=== PATIENT | male | born 1960 | race Caucasian/White ===

== ENCOUNTER → 2021-01-02 11:46 | Outpatient (BNVA) | payer MEDICARE, MEDICAID, SELFPAY | PROVIDERS: Family Provider Family Medicine; PCP Internal Medicine; Visit Provider Specialist | DX: F17.210 Nicotine dependence, cigarettes, uncomplicated; G62.89 Other specified polyneuropathies | CPT/HCPCS: 95908 ==

== ENCOUNTER 2023-07-17 22:00 | Inpatient (IN) | payer MEDICARE, MEDICAID, SELFPAY ==
[2023-07-17 22:01] VITALS: BP 149/82; PULSE 77; RESP 23; TEMP 36.9; O2SAT 94; BMI 20.3
--- NOTE | 2023-07-17 22:19 | XRR_ITS ---
PROCEDURE INFORMATION: Exam: XR Chest Exam date and time: 07/17/2023 10:40 PM Age: 63 years old Clinical indication: Shortness of breath; Additional info: SOB TECHNIQUE: Imaging protocol: Radiologic exam of the chest. Views: 1 view. COMPARISON: No relevant prior studies available. FINDINGS: Lungs: Emphysematous changes. Mild pulmonary vascular congestion. Pleural spaces: Unremarkable. No pleural effusion. No pneumothorax. Heart/Mediastinum: Unremarkable. No cardiomegaly. Bones/joints: Unremarkable. XR/XR chest 1V portable [id number] IMPRESSION: 1. Emphysematous changes. 2. Mild pulmonary vascular congestion.
--- NOTE | 2023-07-17 22:33 | ED_ITS ---
HPI - SOB/Dyspnea General: Chief Complaint: Shortness of Breath/Dyspnea Stated Complaint: SOB Time Seen by Provider: 07/17/23 22:01 Source: patient and EMS Mode of arrival: EMS Limitations: no limitations History of Present Illness: HPI Narrative: 63-year-old male who is here from residential with shortness of breath. He is been a longtime smoker. Minutes patient's had worsening shortness of breath over the last 2 days. He has had cough as well he does not wear oxygen at residential but is currently requiring 4 L. He denies any pain denies any vomiting or diarrhea. Associated symptoms: Deny abdominal pain, chest pain, fever(s), nausea or vomiting Review of Systems Const: Denies: fever(s) or chills Eyes: Denies: eye discomfort ENMT: Denies: throat pain or dental pain Card: Denies: chest pain Resp: Reports: dyspnea and productive cough GI: Denies: abdominal pain, nausea, vomiting or diarrhea : Denies: dysuria Musc: Denies: neck pain or back pain Skin/Breast: Denies: rash Neuro: Denies: headache(s) PFSH ED PFSH: Medical History Seizure Social History Smoking and tobacco/nicotine status: current every day tobacco/nicotine user Alcohol intake: former Substance/Drug Use: former Physical Exam Const: COMMON NORMALS: patient oriented x3 GENERAL APPEARANCE: ill appearing HENMT: COMMON NORMALS: normocephalic and atraumatic HEAD & SCALP: normocephalic and atraumatic Eye: COMMON NORMALS: Equal, round and reactive pupils present and EOMs intact bilaterally PUPIL: Yes Equal, round and reactive pupils present Neck/C-Spine: COMMON NORMALS: full ROM and supple Chest: COMMONS NORMALS: normal inspection of the chest and normal palpation of entire chest wall Resp: COMMON NORMALS: No retractions EFFORT & INSPECTION: Yes respiratory distress AUSCULTATION: rales Cardio: COMMON NORMALS: regular rate, regular rhythm and No murmurs present (Cardio) RATE: regular rate RHYTHM: regular rhythm GI: COMMON NORMALS: Normal to inspection, nondistended, normoactive bowel sounds present, Soft to palpation, non-tender and no masses PALPATION: Yes Soft to palpation Extremity: COMMON NORMALS: normal to inspection and full ROM Neuro: COMMON NORMALS: patient oriented x3, moves all extremities and no focal motor deficits Psych: COMMON NORMALS: mental status grossly normal, Normal thought process present and cooperative THOUGHT PROCESS: Normal thought process present Skin: COMMON NORMALS: no rashes or lesions noted and no wounds GENERAL SKIN EXAM: no rashes or lesions noted Course Vital Signs: Vital signs: Vital Signs Temperature 98.4 F 07/17/23 22:01 Pulse Rate 90 07/17/23 23:14 Respiratory Rate 20 H 07/17/23 23:14 Blood Pressure 149/82 07/17/23 22:01 Pulse Oximetry 95 07/17/23 23:14 Oxygen Delivery Me thod Nasal Cannula 07/17/23 23:14 Oxygen Flow Rate 3 07/17/23 23:14 MDM - SOB/Dyspnea Medical Decision Making Patient presents with residential with shortness of breath he is also on 3 L of oxygen which is a new requirement here he does appear to have CHF did give him Lasana spoke to the hospitalist will admit for observation at this time no signs of pneumonia COVID is negative. Medical Records I reviewed the patient's medical records. Lab Data I reviewed the patient's lab results. 07/17/23 22:41 07/17/23 22:41 Labs/Radiology: Radiology Impressions Chest X-Ray 07/17/23 22:19 IMPRESSION: 1. Emphysematous changes. 2. Mild pulmonary vascular congestion. Chest CTA 07/17/23 23:06 IMPRESSION: 1. Negative for pulmonary embolus. 2. Ascending thoracic aorta dilated to 3.5 cm. 3. Coronary artery atherosclerotic calcifications suspected. 4. Reflux of contrast into the intrahepatic veins suggestive of congestive heart failure. 5. Cardiomegaly. 6. Emphysematous changes. COMMENTS: In the absence of a history or active diagnosis of lung cancer, it is recommended that this patient with emphysema be evaluated for enrollment in a low dose CT lung cancer screening program. Laboratory Results WBC 14.70 10^3/uL (3.29-11.43) H 07/17/23 22:41 RBC 5.09 10^6/uL (3.85-5.65) 07/17/23 22:41 Hgb 15.30 g/dL (11.27-16.99) 07/17/23 22:41 Hct 45.8 % (37-53) 07/17/23 22:41 MCV 90.0 fl (82-101) 07/17/23 22:41 MCH 30.1 pg (27-33) 07/17/23 22:41 MCHC 33.4 g/dL (30-55) 07/17/23 22:41 RDW 13.1 % (12.1-15.1) 07/17/23 22:41 Plt Count 305 10^3/cmm (157-399) 07/17/23 22:41 MPV 9.1 fL (7.4-10.4) 07/17/23 22:41 Neut % (Auto) 78.1 % 07/17/23 22:41 Lymph % (Auto) 8.8 % 07/17/23 22:41 [place] % (Auto) 10.2 % 07/17/23 22:41 Eos % (Auto) 1.9 % 07/17/23 22:41 Baso % (Auto) 0.7 % 07/17/23 22:41 Neut # (Auto) 11.48 10^3/uL (1.8-7.7) H 07/17/23 22:41 Lymph # (Auto) 1.3 10^3/uL (0.8-4.8) 07/17/23 22:41 [place] # (Auto) 1.5 10^3/uL (0.2-0.9) H 07/17/23 22:41 Eos # (Auto) 0.3 10^3/uL (0.0-0.8) 07/17/23 22:41 Baso # (Auto) 0.1 10^3/uL (0.0-0.1) 07/17/23 22:41 Nucleated RBC % (auto) 0 % 07/17/23 22:41 Nucleated RBCs # 0.0 /100WBC 07/17/23 22:41 Sodium 132 mmol/L (136-145) L 07/17/23 22:41 Potassium 3.9 mmol/L (3.5-5.1) 07/17/23 22:41 Chloride 97 mmol/L (98-107) L 07/17/23 22:41 Carbon Dioxide 25 mmol/L (22-29) 07/17/23 22:41 Anion Gap 13.9 (5-19) 07/17/23 22:41 BUN 19 mg/dL (8-23) 07/17/23 22:41 Creatinine 0.6 mg/dL (0.7-1.2) L 07/17/23 22:41 GFR Calculation 135.2 mL/min (90-130) H 07/17/23 22:41 Glucose 111 mg/dL (65-115) 07/17/23 22:41 Calculated Osmolality 277 mOsm/kg (285-295) L 07/17/23 22:41 Calcium 10.7 mg/dL (8.5-10.5) H 07/17/23 22:41 Total Bilirubin 0.2 mg/dL (0.15-1.2) 07/17/23 22:41 AST 14 U/L (0-40) 07/17/23 22:41 ALT 15 U/L (0-41) 07/17/23 22:41 Alkaline Phosphatase 163 U/L (40-130) H 07/17/23 22:41 Troponin T Baseline 37 ng/L (0-15) H 07/17/23 22:41 Troponin T 120 Minute 34.77 ng/L (0-15) H 07/18/23 00:30 Delta Troponin T -2.23 ABS# (0-10) L 07/18/23 00:30 NT-Pro-B Natriuret Pep 4158 pg/mL (0-125) H 07/17/23 22:41 Total Protein 7.7 g/dL (6.6-8.7) 07/17/23 22:41 Albumin 3.8 g/dL (3.5-5.2) 07/17/23 22:41 Globulin 3.9 g/dL (1.3-4.6) 07/17/23 22:41 Influenza Type A Ag negative (Negative) 07/17/23 22:58 Influenza Type B Ag negative (Negative) 07/17/23 22:58 SARS-CoV-2 Ag (Rapid) negative (Negative) 07/17/23 22:58 All radiology interpretation(s) finalized by discharge Discharge Plan Discharge Patient Disposition: Placed in Observation Clinical Impression: Dyspnea, Hypoxia Condition: Stable Prescriptions: No Action atorvastatin [Lipitor] 40 mg tablet 40 mg PO DAILY levetiracetam [Keppra] 500 mg tablet 500 mg PO BID ferrous sulfate 325 mg (65 mg iron) tablet 325 mg PO BID quetiapine [Seroquel] 25 mg tablet 25 mg PO DAILY acetaminophen [Tylenol] 325 mg tablet 650 mg PO QID PRN Dakin's Solution 0.125 % solution 1 applic topical DAILY phenytoin sodium extended 100 mg capsule 100 mg PO TID 90 Days Qty: 270 2RF Rx Instructions: 100 mg PO three times daily; phenobarbital 32.4 mg tablet 32.4 mg PO TID Qty: 90 5RF Referrals: Germán Bucio DO [Primary Care Provider] - Coding Level of Care Code ED 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
[2023-07-17 22:45] LABS: Basophils # 0.1 10^3/uL (0.0-0.1); Basophils % 0.7 %; Eosinophils # 0.3 10^3/uL (0.0-0.8); Eosinophils % 1.9 %; Hematocrit 45.8 % (37-53); Lymphocytes # 1.3 10^3/uL (0.8-4.8); Lymphocytes % 8.8 %; Mean Corpuscular HGB Conc 33.4 g/dL (30-55); Mean Corpuscular Hemoglobin 30.1 pg (27-33); Mean Platelet Volume 9.1 fL (7.4-10.4); Monocytes # 1.5 10^3/uL (0.2-0.9); Monocytes % 10.2 %; Neutrophils # 11.48 10^3/uL (1.8-7.7); Neutrophils % 78.1 %; Nucleated Red Blood Cells % 0 %; Platelet Count 305 10^3/cmm (157-399); Red Blood Count 5.09 10^6/uL (3.85-5.65); Red Cell Distribution Width 13.1 % (12.1-15.1)
[2023-07-17 22:53] VITALS: PULSE 96; O2SAT 93
[2023-07-17] MEDS: methylPREDNISolone sod succ 125 MG in water for injection-sterile 2 ML 24 MG IVP (22:57)
--- NOTE | 2023-07-17 23:01 | ECG_ITS ---
[facility] Test Date: 2023-07-17 Pat Name: Arnoldo Hoover Department: Room: Gender: Male [employer]: : 1960 Requested By: Inga Conner Order Number: [id number] Leonard MD: Fredy Clemens M.D. Measurements Intervals [place]inger Rate: 86 P: 72 [place]: 144 QRS: 73 QRSD: 116 T: 27 QT: 356 QTc: 427 Interpretive Statements SINUS RHYTHM WITH OCCASIONAL VENTRICULAR PREMATURE COMPLEXES LATERAL MYOCARDIAL INFARCTION , PROBABLY OLD [40+ ms Q WAVE AND/OR ST/T ABNORMALITY IN I/aVL/V5/V6] Compared to ECG 06/30/2016 16:43:19 Atrial fibrillation no longer present Aberrant conduction of supraventricular beat(s) no longer present Myocardial infarct finding still present Electronically Signed On 07-18-2023 6:23:22 CDT by Fredy Clemens M.D. [id number]
--- NOTE | 2023-07-17 23:06 | CTR_ITS ---
PROCEDURE INFORMATION: Exam: CTA Chest With Contrast Exam date and time: 07/18/2023 12:50 AM Age: 63 years old Clinical indication: Dyspnea; Additional info: SOB TECHNIQUE: Imaging protocol: Computed tomographic angiography of the chest with contrast. Exam focused on the arteries. 3D rendering (Not supervised by radiologist): MIP and/or 3D reconstructed images were created by the technologist. Radiation optimization: All CT scans at this facility use at least one of these dose optimization techniques: automated exposure control; mA and/or kV adjustment per patient size (includes targeted exams where dose is matched to clinical indication); or iterative reconstruction. Contrast material: OMNI 350; Contrast volume: 80 ml; Contrast route: INTRAVENOUS (IV); REPORTING DATA: Count of CT and Cardiac NM exams in prior 12 months: This patient has received 0 known CTs and 0 known cardiac nuclear medicine studies in the 12 months prior to the current study. COMPARISON: CR (CHEST, ) 07/17/2023 10:40 PM RADIATION DOSE METRICS: Total DLP (mGy-cm): 258.48 FINDINGS: Pulmonary arteries: Normal. No pulmonary emboli. Aorta: Ascending thoracic aorta dilated to 3.5 cm. Veins: Reflux of contrast into the intrahepatic veins suggestive of congestive heart failure. Lungs: Emphysematous changes. Pleural spaces: Unremarkable. No pneumothorax. No pleural effusion. Heart: Cardiomegaly. Coronary arteries: Coronary artery atherosclerotic calcifications suspected. Lymph nodes: Unremarkable. No enlarged lymph nodes. Bones/joints: Unremarkable. No acute fracture. Soft tissues: Unremarkable. CT/CT angio chest PE protcl [id number] IMPRESSION: 1. Negative for pulmonary embolus. 2. Ascending thoracic aorta dilated to 3.5 cm. 3. Coronary artery atherosclerotic calcifications suspected. 4. Reflux of contrast into the intrahepatic veins suggestive of congestive heart failure. 5. Cardiomegaly. 6. Emphysematous changes. COMMENTS: In the absence of a history or active diagnosis of lung cancer, it is recommended that this patient with emphysema be evaluated for enrollment in a low dose CT lung cancer screening program.
[2023-07-17 23:11] VITALS: PULSE 93; RESP 20; O2SAT 95
[2023-07-17] MEDS: ipratropium-albuterol 3 mL Neb INHALATION (23:11)
[2023-07-17 23:14] VITALS: PULSE 90; RESP 20; O2SAT 95
[2023-07-17 23:17] LABS: Alanine Aminotransferase 15 U/L (0-41); Albumin Level 3.8 g/dL (3.5-5.2); Alkaline Phosphatase 163 U/L (40-130); Anion Gap 13.9 (5-19); Aspartate Amino Transferase 14 U/L (0-40); Blood Urea Nitrogen 19 mg/dL (8-23); Calcium 10.7 mg/dL (8.5-10.5); Carbon Dioxide 25 mmol/L (22-29); Chloride 97 mmol/L (98-107); Globulin 3.9 g/dL (1.3-4.6); Glomerular Filtration Rate 135.2 mL/min (90-130); Glucose 111 mg/dL (65-115); NT Pro B Type Natriuretic Pept 4158 pg/mL (0-125); Osmolality Calculated 277 mOsm/kg (285-295); Potassium 3.9 mmol/L (3.5-5.1); Sodium 132 mmol/L (136-145); Total Bilirubin 0.2 mg/dL (0.15-1.2); Total Protein 7.7 g/dL (6.6-8.7)
[2023-07-17 23:32] LABS: Troponin(5th) Baseline 37 ng/L (0-15)
[2023-07-17 23:36] LABS: Influenza A by IFA negative (Negative); Influenza B by IFA negative (Negative); SARS Covid-2 Antigen negative (Negative)
[2023-07-17] MEDS: FUROsemide 10 mg/mL SDV 4mL 40 MG IVP (23:59)
[2023-07-18] VITALS (26 sets, daily range): BP systolic 114–157; BP diastolic 78–122; PULSE 55–127; RESP 18–34; TEMP 36.4–36.7; O2SAT 85–98
[2023-07-18] MEDS: iohexol 350 mg/mL 500 mL Btl (per mL) IV (01:00)
[2023-07-18 01:01] LABS: Troponin 5 2HR 34.77 ng/L (0-15)
[2023-07-18 01:10] LABS: Troponin 5 2HR Delta -2.23 ABS# (0-10)
--- NOTE | 2023-07-18 04:48 | USCV_ITS ---
Kiko Arnoldo Age: 63 Gender: M : 1960 Exam Date: 07/18/2023 09:51 Ordering Phys: Megan Hu MD Technologist: Delvin Kay [place] [facility] [place]: eval EF, BP: 134 / 72 HR: 97 Rhythm: Sinus Technical Quality: Fair MEASUREMENTS (Male / Female) Normal Values 2D ECHO LV Ejection Fraction MOD 2C 51.9 % LV Ejection Fraction 2C AL 51.4 % DOPPLER AV Peak Velocity 127.0 cm/s LVOT Peak Velocity 91.0 cm/s MV Area PHT 14.7 cm squared Mitral E to A Ratio 1.9 MV E' Velocity 47.0 cm/s Mitral E to MV E' Ratio 13.9 Mitral E to LV E' Lateral Ratio 10.8 Mitral E to LV E' Septal Ratio 20.1 TR Peak Velocity 119.0 cm/s TR Peak Gradient 5.7 mmHg TV Peak E Velocity 93.0 cm/s FINDINGS Left Ventricle Technically limited quality echocardiogram because of poor ultrasonic windows. Grossly LV systolic function is moderately reduced. Regional wall motion abnormalities can not be accurately assessed because of poor ultrasonic windows. Right Ventricle Not well visualized Right Atrium Not well visualized Left Atrium Normal in size Mitral Valve Grossly normal Aortic Valve Not well visualized Tricuspid Valve Not well visualized Pulmonic Valve Not well visualized Pericardium Grossly nrmal Aorta Not well visualized IVC Not well visualized CONCLUSIONS Technically very limited quality echocardiogram because of poor ultrasonic windows. Grossly LV systolic function is moderately reduced. Regional wall motion abnormalities cannot be accurately assessed because of noted visualization. No comparison studies are available. Fredy Clemens MD (Electronically Signed) Final Date: 18 July 2023 12:20 S
--- NOTE | 2023-07-18 04:52 | P.HP_ITS ---
Providers/Chief Complaint Admitting Physician: Megan Hu MD Primary Care Provider: Germán Bucio DO Chief Complaint: SOB History of Present Illness Arnoldo Hoover is a 63 year old male who is a snf resident. He has a long-term history of epilepsy. He is sent into the emergency room today due to chief complaints of upper respiratory symptoms including runny nose, dry cough. Yesterday his oxygen was noted to drop down to 86% on room air. He was noted to have bilateral crackles on exam. He received albuterol treatment which did not appear to help, oxygen requirement was at 3 L/min which is new for him. He is not known to have chronic hypoxia. At the time of my assessment patient endorses feeling fatigued however denies any other specific complaints at this time. On review of symptoms asking specifically about chest pain. He states he has had midsternal chest discomfort for about 2 days now. He smokes half a pack of cigarettes a day, long-term smoker over 30 years. Denies any fever or chills recently. Denies any cough, however noted to be coughing intermittently during the interview.Denies any past history of CAD or CHF. Review of Systems General: Reports: 10 or more systems reviewed and unremarkable except in HPI and below Const: Denies: fever(s), chills or body aches Eyes: Denies: change in vision, blurry vision or photophobia ENMT: Reports: hoarseness; Denies: throat pain, enlarged tonsils, odynophagia or nasal congestion Card: Denies: chest pain, palpitations, irregular heart rhythm, edema, swelling of feet/ankles, lightheadedness, pre-syncope, dyspnea on exertion or orthopnea Resp: Denies: dyspnea, productive cough, non-productive cough, wheezing, stridor, pain on inspiration, change in phlegm color, hemoptysis or chest congestion GI: Denies: abdominal pain, nausea, vomiting, hematemesis, coffee ground emesis, dysphagia, heartburn, diarrhea, constipation, GI cramping, change in stool character, hematochezia or melena : Denies: flank pain, dysuria, urinary frequency, urinary urgency, urinary hesitancy or hematuria Musc: Denies: neck pain, back pain, extremity pain, joint swelling, joint warm th or deformity Neuro: Denies: headache(s), numbness in extremities, weakness in extremities, sensory changes, difficulty walking, frequent falls, dizziness, vertigo, beh avioral changes, Slurred speech present or seizure-like activity Psych: Denies: anxiety, depression, suicidal ideation or homicidal ideation Endo: Denies: polyuria, polydipsia, tired all the time, cold intolerance or hot flashes Kam/Lymph: Denies: easy bruising or easy bleeding Medications/Allergies Home Medications Medication Instructions Recorded Confirmed Last Taken Type phenytoin sodium extended 100 mg 100 mg PO TID seizure disorder 90 09/07/20 01/02/21 Unknown Rx capsule days #270 caps phenobarbital 32.4 mg tablet 32.4 mg PO TID seizure activity 09/26/20 01/02/21 Unknown Rx #90 tabs acetaminophen 325 mg tablet 650 mg PO QID PRN 01/02/21 01/02/21 Unknown History (Tylenol) atorvastatin 40 mg tablet (Lipitor) 40 mg PO DAILY 01/02/21 01/02/21 Unknown History ferrous sulfate 325 mg (65 mg 325 mg PO BID 01/02/21 01/02/21 Unknown History iron) tablet levetiracetam 500 mg tablet 500 mg PO BID 01/02/21 01/02/21 Unknown History (Keppra) quetiapine 25 mg tablet (Seroquel) 25 mg PO DAILY 01/02/21 01/02/21 Unknown History sodium hypochlorite 0.125 % 1 applic topical DAILY 01/02/21 01/02/21 Unknown History solution (Dakin's Solution) Allergies Allergy/AdvReac Type Severity Reaction Status Date / Time No Known Allergies Allergy Verified 01/02/21 12:01 PFSH Acute PFSH: Medical History Seizure Social History Smoking and tobacco/nicotine status: current every day tobacco/nicotine user Alcohol intake: former Substance/Drug Use: former Vitals/I&O/Wt Last Vital Signs Temp 98.4 F 07/17/23 22:01 Pulse 78 07/18/23 01:46 Resp 22 H 07/18/23 01:46 BP 114/78 07/18/23 01:46 Pulse Ox 92 07/18/23 01:46 O2 Del Method Nasal Cannula 07/18/23 02:19 O2 Flow Rate 3 07/17/23 23:14 07/17/23 07/17/23 07/18/23 14:59 22:59 06:59 Intake Total 2 / 2 Balance 2 / 2 Weight last 48 hrs Weight 57.153 kg Physical Exam Narrative: General: No acute distress, AO x3 HEENT: PERRLA, pupils bilaterally equal and reactive, pallors not present Chest: Bilateral wheezing on exam CVS: S1-S2 regular, no murmurs, no tachycardia, no gallops, no rubs Abdomen: Soft, nontender, no organomegaly, bowel sounds present Neuro: No focal deficits, no facial deformity, AO x3, power 5/5 in all limbs Extremities: Mild bilateral lower extremity pitting edema Data 07/17/23 22:41 07/17/23 22:41 Other Labs: CT/CT angio chest PE protcl [id number] IMPRESSION: 1. ? Negative for pulmonary embolus. 2. ? Ascending thoracic aorta dilated to 3.5 cm. 3. ? Coronary artery atherosclerotic calcifications suspected. 4. ? Reflux of contrast into the intrahepatic veins suggestive of congestive heart failure. 5. ? Cardiomegaly. 6. ? Emphysematous changes. A&P Assessment and plan (1) Dyspnea: (2) Hypoxia: (3) COPD exacerbation: (4) Thoracic aortic aneurysm: (5) CHF (congestive heart failure): Plan 63-year-old male, chronic smoker, history of seizure disorder, sn[facility] resident, presented to the emergency room today with chief complaints of hypoxia, oxygen saturation 86% on room air, new oxygen requirement of 2 to 3 L/min. Differentials at this time include COPD exacerbation versus CHF exacerbation On exam patient is noted to have wheezing bilaterally in all lung lala. Emphysematous changes noted on chest x-ray. Denies any past history of COPD or inhaler use, however given history of smoking and chronic changes suspect he may have underlying COPD with exacerbation currently. Negative rapid COVID and flu antigens. Started on scheduled nebulization with DuoNeb and budesonide for COPD exacerbation Dexamethasone 6 mg IV daily for the same. CTA negative for PE today. No focal consolidation noted. Lower extremity pitting edema, elevated BNP, congestive hepatic changes noted on CT today with suspicion additionally for CHF. Patient endorses intermittent chest pain for the past 2 days, however unable to specify any details. EKG without any acute ST-T wave changes, troponin series 37--> 34--> 26 with serially negative delta's make ACS less likely at this time. May have underlying pulmonary hypertension or CHF. Echocardiogram to evaluate for the same. Received 40 mg of IV Lasix in the emergency room, We will continue diuresis with Lasix 40 mg p.o. daily with close monitoring of urine output and renal function. Attestations Medical Necessity Statement*: Anticipate less than 2 midnight admission at this point in time. Coding Level of Care Code Acute Code for [facility] Fwd Diagnoses Dyspnea R06.00 Hypoxia R09.02 COPD exacerbation J44.1 Thoracic aortic aneurysm I71.20 CHF (congestive heart failure) I50.9
[2023-07-18 05:27] LABS: Troponin 5 6HR 26.12 ng/L (0-15)
[2023-07-18 05:32] LABS: Procalcitonin 0.06 ng/mL (0-0.5)
[2023-07-18] MEDS: enoxaparin 40 mg/0.4 mL Syringe SUBCUT (05:57)
[2023-07-18] MEDS: dexamethasone 4 mg/mL INJ 6 MG IVP (09:07)
[2023-07-18] MEDS: FUROsemide 20 mg Tablet PO (09:07)
[2023-07-18] MEDS: pantoprazole DR 40 mg Tablet PO (09:10)
--- NOTE | 2023-07-18 09:15 | PC.RESP ---
pt given meds 0900, pulmicort, and duoneb
[2023-07-18] MEDS: budesonide 0.5 mg/2 mL Neb INHALATION ×2 (09:24→19:58)
[2023-07-18] MEDS: ipratropium-albuterol 3 mL Neb INHALATION ×3 (09:24→19:58)
[2023-07-18] MEDS: methylPREDNISolone sod succ 60 MG in water for injection-sterile 0.96 ML 11.52 MG IVP ×2 (09:39→17:27)
--- NOTE | 2023-07-18 09:50 | PM.MISC ---
Miscellaneous Note Note: Patient is wheezing Tripoding Transfer to ICU Start BiPAP Patient is full code Patient stating that he does not have any family or friends He wants to stay full code Goals of care discussed today Tripoding with crackles Active wheezing Currently on 2 to 3 L nasal cannula Abdomen soft Lower extremity trace edema GCS 15 Awake and alert Start IV Lasix Start IV steroids Transfer to ICU Start BiPAP We will give magnesium Patient refused ABG No signs of PE We will give him azithromycin and ceftriaxone for COPD exacerbation
--- NOTE | 2023-07-18 10:16 | PC.NURSE ---
Report called to VAL Pool. Pt leaving floor to ICU - Bed 3.
[2023-07-18] MEDS: cefTRIAXone 1,000 MG in sodium chloride 0.9% (plus) 50 ML 100 MG IV (12:04)
[2023-07-18] MEDS: FUROsemide 10 mg/mL SDV 4mL 40 MG IVP (12:04)
[2023-07-18] MEDS: magnesium sulfate premix 1 GM/100 ML PIGGYBACK IV (12:05)
--- NOTE | 2023-07-18 18:42 | PC.NURSE ---
Pt was brought to ICU via wheelchair on 3L NC. Once patient was placed in a room telemetry was placed but patient continues to remove patches. Patient also gets out of bed without pushing call light to use urinal. Continued education on pushing call light and wearing telemetry patches.
[2023-07-18] MEDS: gabapentin 300 mg Capsule PO (20:44)
--- NOTE | 2023-07-18 22:12 | PC.NURSE ---
Patient requested his epilepsy medication. Dr. Vidales was contacted and orders were given to resume Kepp[facility]in [facility].
[2023-07-18] MEDS: phenytoin ER 100 mg Capsule PO (22:37)
[2023-07-18] MEDS: levETIRAcetam 500 mg Tablet PO (22:37)
[2023-07-19] VITALS (31 sets, daily range): BP systolic 85–167; BP diastolic 53–126; PULSE 68–105; RESP 12–32; TEMP 36.9; O2SAT 85–94
[2023-07-19] MEDS: methylPREDNISolone sod succ 60 MG in water for injection-sterile 0.96 ML 11.52 MG IVP ×3 (00:32→17:00)
[2023-07-19] MEDS: ipratropium-albuterol 3 mL Neb INHALATION ×4 (03:18→19:48)
[2023-07-19 04:35] LABS: Basophils % 0.3 %; Hematocrit 47.3 % (37-53); Lymphocytes # 0.7 10^3/uL (0.8-4.8); Lymphocytes % 6.2 %; Mean Corpuscular HGB Conc 32.1 g/dL (30-55); Mean Corpuscular Hemoglobin 30.3 pg (27-33); Mean Corpuscular Volume 94.2 fl (82-101); Mean Platelet Volume 10.2 fL (7.4-10.4); Monocytes # 0.7 10^3/uL (0.2-0.9); Monocytes % 5.7 %; Neutrophils # 10.35 10^3/uL (1.8-7.7); Nucleated Red Blood Cells % 0 %; Platelet Count 270 10^3/cmm (157-399); Red Blood Count 5.02 10^6/uL (3.85-5.65); Red Cell Distribution Width 13.2 % (12.1-15.1); White Blood Count 11.89 10^3/uL (3.29-11.43)
[2023-07-19] MEDS: enoxaparin 40 mg/0.4 mL Syringe SUBCUT (04:46)
[2023-07-19 05:02] LABS: Alanine Aminotransferase 16 U/L (0-41); Albumin Level 4.1 g/dL (3.5-5.2); Alkaline Phosphatase 166 U/L (40-130); Anion Gap 20.1 (5-19); Aspartate Amino Transferase 12 U/L (0-40); Blood Urea Nitrogen 32 mg/dL (8-23); Calcium 11.2 mg/dL (8.5-10.5); Carbon Dioxide 24 mmol/L (22-29); Chloride 99 mmol/L (98-107); Globulin 3.4 g/dL (1.3-4.6); Glucose 122 mg/dL (65-115); Magnesium 2.7 mg/dL (1.7-2.3); Osmolality Calculated 296 mOsm/kg (285-295); Potassium 4.1 mmol/L (3.5-5.1); Sodium 139 mmol/L (136-145); Total Bilirubin 0.2 mg/dL (0.15-1.2); Total Protein 7.5 g/dL (6.6-8.7)
[2023-07-19] MEDS: budesonide 0.5 mg/2 mL Neb INHALATION ×2 (07:37→19:49)
--- NOTE | 2023-07-19 08:02 | PC.SOCIAL ---
IMM Update pg 2 of IMM not updated @ this time as patient is currently in observation status.
[2023-07-19] MEDS: azithromycin 250 mg Tablet 500 MG PO (08:26)
[2023-07-19] MEDS: pantoprazole DR 40 mg Tablet PO (08:27)
[2023-07-19] MEDS: phenytoin ER 100 mg Capsule PO ×3 (08:27→20:31)
[2023-07-19] MEDS: levETIRAcetam 500 mg Tablet PO ×2 (08:27→17:01)
[2023-07-19] MEDS: gabapentin 300 mg Capsule PO ×3 (08:28→20:31)
[2023-07-19] MEDS: cefTRIAXone 1,000 MG in sodium chloride 0.9% (plus) 50 ML 100 MG IV (08:31)
--- NOTE | 2023-07-19 10:04 | PM.PN ---
Subjective Subjective: Patient is stating that he felt slightly better however still wheezing crackles positive He did use BiPAP for a while overnight Currently on nasal cannula Hypertensive and tachycardic Vitals/I&O/Wt Last Vital Signs Temp 97.6 F 07/18/23 20:30 Pulse 105 H 07/19/23 09:00 Resp 18 07/19/23 09:00 BP 148/110 07/19/23 09:00 Pulse Ox 90 07/19/23 09:00 O2 Del Method BiPAP 07/19/23 07:45 O2 Flow Rate 3 07/18/23 13:27 FiO2 30 07/19/23 07:45 07/18/23 07/19/23 07/19/23 22:59 06:59 14:59 Intake Total 600.96 / 651.92 0.96 / 652.88 Output Total 950 / 950 200 / 200 Balance -349.04 / -298.08 0.96 / -297.12 -200 / -200 Weight last 48 hrs Weight 57.153 kg Physical Exam Narrative: Signs of fluid overload present Crackles and wheezing positive Currently on nasal cannula Abdomen soft S1, S2 tachycardia Left eye cataract Nonfocal neuro exam GCS 15 Data 07/19/23 03:47 07/19/23 03:47 A&P Assessment and plan (1) CHF (congestive heart failure): (2) Thoracic aortic aneurysm: (3) COPD exacerbation: (4) Dyspnea: (5) Hypoxia: (6) Seizure: (7) Cataract: (8) Mononeuritis multiplex: Plan Acute/new onset CHF Gross reduced EF as per the recent echo Most likely will need stress test on Saturday Continue IV Lasix Hypertensive: Adjust antihypertensive regimen And added amlodipine would use lisinopril as well COPD exacerbation Active wheezing with crackles Continue high-dose steroids Patient did use BiPAP for a while overnight Currently on nasal cannula CTA rule out PE Seizure without breakthrough episodes Continue phenytoin We will follow-up with phenytoin level Patient is stating that he wants to stay full code Cardiac diet DVT prophylaxis on board Attestations Medical Necessity Statement*: Anticipating stay until Saturday Diagnoses CHF (congestive heart failure) I50.9 Thoracic aortic aneurysm I71.20 COPD exacerbation J44.1 Dyspnea R06.00 Hypoxia R09.02 Seizure R56.9 Cataract H26.9 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
[2023-07-19] MEDS: amlodipine 10 mg Tablet PO (10:34)
[2023-07-19] MEDS: FUROsemide 10 mg/mL SDV 4mL 40 MG IVP (10:34)
[2023-07-19] MEDS: lisinopril 10 mg Tablet PO (10:34)
[2023-07-19 19:32] LABS: Glucose Point of Care 181 mg/dL (70-110)
[2023-07-20] VITALS (21 sets, daily range): BP systolic 90–140; BP diastolic 54–86; PULSE 63–94; RESP 16–26; TEMP 36.6; O2SAT 88–98
[2023-07-20] MEDS: methylPREDNISolone sod succ 60 MG in water for injection-sterile 0.96 ML 11.52 MG IVP ×2 (00:34→09:09)
[2023-07-20] MEDS: ipratropium-albuterol 3 mL Neb INHALATION ×4 (02:46→20:13)
[2023-07-20] MEDS: enoxaparin 40 mg/0.4 mL Syringe SUBCUT (04:08)
[2023-07-20 04:48] LABS: Basophils % 0.2 %; Hematocrit 44.6 % (37-53); Lymphocytes # 0.8 10^3/uL (0.8-4.8); Lymphocytes % 6.2 %; Mean Corpuscular HGB Conc 33.4 g/dL (30-55); Mean Corpuscular Volume 89.9 fl (82-101); Mean Platelet Volume 9.6 fL (7.4-10.4); Monocytes # 0.6 10^3/uL (0.2-0.9); Monocytes % 5.1 %; Neutrophils # 11.01 10^3/uL (1.8-7.7); Neutrophils % 87.9 %; Nucleated Red Blood Cells % 0 %; Platelet Count 345 10^3/cmm (157-399); Red Blood Count 4.96 10^6/uL (3.85-5.65); Red Cell Distribution Width 13.2 % (12.1-15.1); White Blood Count 12.52 10^3/uL (3.29-11.43)
[2023-07-20 05:12] LABS: Anion Gap 14.3 (5-19); Blood Urea Nitrogen 55 mg/dL (8-23); Calcium 10.4 mg/dL (8.5-10.5); Carbon Dioxide 28 mmol/L (22-29); Chloride 99 mmol/L (98-107); Creatinine Clr Calc Pharmacy 70.7653; Glomerular Filtration Rate 84.7 mL/min (90-130); Glucose 126 mg/dL (65-115); Magnesium 2.4 mg/dL (1.7-2.3); Osmolality Calculated 301 mOsm/kg (285-295); Potassium 4.3 mmol/L (3.5-5.1); Sodium 137 mmol/L (136-145)
[2023-07-20] MEDS: budesonide 0.5 mg/2 mL Neb INHALATION ×2 (08:06→20:16)
[2023-07-20] MEDS: cefTRIAXone 1,000 MG in sodium chloride 0.9% (plus) 50 ML 100 MG IV (09:08)
[2023-07-20] MEDS: azithromycin 250 mg Tablet 500 MG PO (09:08)
[2023-07-20] MEDS: phenytoin ER 100 mg Capsule PO ×3 (09:09→20:49)
[2023-07-20] MEDS: lisinopril 10 mg Tablet PO (09:09)
[2023-07-20] MEDS: gabapentin 300 mg Capsule PO ×3 (09:09→20:49)
[2023-07-20] MEDS: amlodipine 10 mg Tablet PO (09:09)
[2023-07-20] MEDS: levETIRAcetam 500 mg Tablet PO ×2 (09:09→17:43)
[2023-07-20] MEDS: pantoprazole DR 40 mg Tablet PO (09:09)
--- NOTE | 2023-07-20 11:52 | PM.PN ---
Subjective Subjective: Patient is on 6 L Did not use BiPAP Productive cough slightly better Wheezing improved Can be transferred out of ICU to [facility] Vitals/I&O/Wt Last Vital Signs Temp 98.5 F 07/19/23 19:00 Pulse 71 07/20/23 08:00 Resp 23 H 07/20/23 08:00 BP 117/77 07/20/23 08:00 Pulse Ox 94 07/20/23 08:00 O2 Del Method Nasal Cannula 07/20/23 08:00 O2 Flow Rate 6 07/20/23 08:00 FiO2 30 07/19/23 07:45 07/19/23 07/20/23 07/20/23 22:59 06:59 14:59 Intake Total 1160.96 / 1211.92 240.96 / 1452.88 120 / 120 Output Total 600 / 800 500 / 1300 200 / 200 Balance 560.96 / 411.92 -259.04 / 152.88 -80 / -80 Physical Exam Narrative: Wheezing or crackles slightly improved Currently on 6 L Saturating 91% S1, S2 Hemodynamic stable Malnourished Abdomen soft Extremity no edema Data 07/20/23 04:06 07/20/23 04:06 A&P Assessment and plan (1) CHF (congestive heart failure): (2) Thoracic aortic aneurysm: (3) COPD exacerbation: (4) Dyspnea: (5) Hypoxia: (6) Mononeuritis multiplex: (7) Seizure: (8) Cataract: Plan Acute systolic CHF exacerbation Improving gradually Monitor electrolyte imbalance Acute COPD exacerbation Active smoker Wheezing and crackles improving Can be transferred to [facility] Continue same dose of steroids today might taper off by tomorrow Patient was given magnesium as well Magnesium 2.4 Disposition plan: Back to facility likely on Saturday after home O2 evaluation Full code Cardiac consistent carb diet No signs of PE Attestations Medical Necessity Statement*: Continue medical management Diagnoses CHF (congestive heart failure) I50.9 Thoracic aortic aneurysm I71.20 COPD exacerbation J44.1 Dyspnea R06.00 Hypoxia R09.02 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 Seizure R56.9 Cataract H26.9
[2023-07-20] MEDS: FUROsemide 10 mg/mL SDV 4mL 40 MG IVP (13:02)
--- NOTE | 2023-07-20 18:12 | PC.NURSE ---
Patients IV was leaking and unable to flush to right AC IV was removed. This nurse attempted twice to place new IV and when second nurse attempted patient began yelling at staff and refused any more IV attempts. Dr. Rivas was notified.
[2023-07-21] VITALS (23 sets, daily range): BP systolic 104–157; BP diastolic 64–103; PULSE 64–104; RESP 13–27; TEMP 35.8–36.4; O2SAT 85–98
[2023-07-21] MEDS: methylPREDNISolone sod succ 60 MG in water for injection-sterile 0.96 ML 11.52 MG IVP ×2 (00:31→08:58)
[2023-07-21] MEDS: ipratropium-albuterol 3 mL Neb INHALATION ×4 (01:21→20:54)
[2023-07-21] MEDS: enoxaparin 40 mg/0.4 mL Syringe SUBCUT (04:00)
[2023-07-21 05:19] LABS: Chloride 98 mmol/L (98-107); Glucose 115 mg/dL (65-115); Sodium 135 mmol/L (136-145)
[2023-07-21 06:07] LABS: Potassium 4.6 mmol/L (3.5-5.1)
[2023-07-21 06:37] LABS: Anion Gap 15.6 (5-19); Blood Urea Nitrogen 38 mg/dL (8-23); Calcium 10.2 mg/dL (8.5-10.5); Carbon Dioxide 26 mmol/L (22-29); Glomerular Filtration Rate 166.9 mL/min (90-130); Osmolality Calculated 290 mOsm/kg (285-295)
[2023-07-21] MEDS: budesonide 0.5 mg/2 mL Neb INHALATION ×2 (07:29→20:54)
[2023-07-21] MEDS: cefTRIAXone 1,000 MG in sodium chloride 0.9% (plus) 50 ML 100 MG IV (08:57)
[2023-07-21] MEDS: azithromycin 250 mg Tablet 500 MG PO (08:58)
[2023-07-21] MEDS: levETIRAcetam 500 mg Tablet PO ×2 (08:58→17:17)
[2023-07-21] MEDS: pantoprazole DR 40 mg Tablet PO (08:58)
[2023-07-21] MEDS: gabapentin 300 mg Capsule PO ×3 (08:58→20:52)
[2023-07-21] MEDS: amlodipine 10 mg Tablet PO (08:58)
[2023-07-21] MEDS: phenytoin ER 100 mg Capsule PO ×3 (08:58→20:51)
[2023-07-21] MEDS: lisinopril 10 mg Tablet PO (08:59)
[2023-07-21] MEDS: FUROsemide 10 mg/mL SDV 4mL 40 MG IVP (10:23)
--- NOTE | 2023-07-21 11:58 | ECG_ITS ---
[facility] Test Date: 2023-07-22 Pat Name: Arnoldo Hoover Department: Room: 252 Gender: Male Waste Hand: Lisandra Rodneyfus : 1960 Requested By: Berna Rivas Order Number: [id number] Leonard MD: Kelvin Diaz M.D. Interpretive Statements NAME OF STUDY: LEXISCAN SESTAMIBI STRESS TEST INDICATION: Unstable Angina , PROCEDURE: At the baseline, the EKG revealed normal sinus rhythm with frequent PVCs. Features of old inferolateral wall myocardial infarction. Nonspecific IVCD. The baseline 88 bpm with a blood pressue of 123/87 mm of Hg Lexiscan was infused over a period of 20 seconds. A total of 0.4 milligrams of Lexiscan was infused. The stress phase was continued for a total of 5 minutes. Heart rate at the end of the stress phase was 92 bpm with a blood pressure 79/61 mm of Hg. The EKG at the peak infusion revealed almost complete disappearance of the PVCs. Sestamibi was injected 20 seconds after the Lexiscan infusion. Heart rate at the end of the recovery phase was 91 bpm with a blood pressure of 90/58 mm of Hg. the EKG showed return of the baseline PVCs CONCLUSION: 1. No significant EKG changes with the LexiScan infusion 2. No LexiScan induced chest pain or cardiac arrhythmia 3. Normal blood pressure and heart rate response 4. Sestamibi/sestamibi perfusion scan pending; see separate report. Electronically Signed On 07-27-2023 13:57:13 POWER PRESS OPERATOR by Kelvin Diaz M.D. [id number]
--- NOTE | 2023-07-21 11:58 | PM.PN ---
Subjective Subjective: This morning patient is on 4 L Endorsing feeling better Productive cough has improved Will require stress test for tomorrow Vitals/I&O/Wt Last Vital Signs Temp 96.5 F L 07/21/23 00:00 Pulse 97 07/21/23 09:00 Resp 26 H 07/21/23 09:00 BP 127/80 07/21/23 09:00 Pulse Ox 98 07/21/23 08:00 O2 Del Method Nasal Cannula 07/21/23 07:29 O2 Flow Rate 4 07/21/23 07:29 FiO2 30 07/19/23 07:45 07/20/23 07/21/23 07/21/23 23:59 06:59 14:59 Intake Total 290.96 / 290.96 Output Total Balance 290.96 / 290.96 Physical Exam Narrative: Wheezing or crackles improved Currently on 4 L Multiple PVCs on telemetry Afebrile Hemodynamic stable Pleasant and cooperative Signs of fluid load improving Pleasant and cooperative Nonfocal neuro exam Left eye cataract Data 07/20/23 04:06 07/21/23 03:42 A&P Assessment and plan (1) CHF (congestive heart failure): (2) Thoracic aortic aneurysm: (3) COPD exacerbation: (4) Dyspnea: (5) Hypoxia: (6) Mononeuritis multiplex: (7) Seizure: (8) Cataract: Plan 63-year male came from [place] for acute hypoxia, active smoker has been diagnosed with new onset CHF and COPD exacerbation, he was transferred to ICU because of his tripoding and active respiratory distress improved with IV steroids and use of antibiotics, no signs of PE, currently requiring 4 to 5 L of oxygen Reduced ejection fraction heart failure exacerbation We will request chest test tomorrow Acute hypoxia related to COPD and CHF exacerbation Currently on 4 L Patient does not take any inhalers Will need steroids and COPD inhalers at the time of discharge Acute COPD exacerbation Improved with IV steroids and antibiotics Active smoker History of seizures Continue phenytoin Patient will be able to go back to the facility on Saturday if stress test is negative Attestations Medical Necessity Statement*: Continue medical management transfer out of ICU Diagnoses CHF (congestive heart failure) I50.9 Thoracic aortic aneurysm I71.20 COPD exacerbation J44.1 Dyspnea R06.00 Hypoxia R09.02 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 Seizure R56.9 Cataract H26.9
[2023-07-22] VITALS (12 sets, daily range): BP systolic 90–116; BP diastolic 58–73; PULSE 66–92; RESP 15–18; TEMP 36.3–36.8; O2SAT 87–96
[2023-07-22] MEDS: ipratropium-albuterol 3 mL Neb INHALATION ×4 (02:14→20:48)
[2023-07-22 03:25] LABS: Basophils % 0.4 %; Eosinophils # 0.2 10^3/uL (0.0-0.8); Eosinophils % 1.7 %; Lymphocytes # 2.9 10^3/uL (0.8-4.8); Lymphocytes % 31.3 %; Mean Corpuscular HGB Conc 33.3 g/dL (30-55); Mean Corpuscular Hemoglobin 30.2 pg (27-33); Mean Corpuscular Volume 90.7 fl (82-101); Mean Platelet Volume 9.1 fL (7.4-10.4); Monocytes # 1.1 10^3/uL (0.2-0.9); Neutrophils # 4.95 10^3/uL (1.8-7.7); Neutrophils % 53.2 %; Nucleated Red Blood Cells % 0 %; Platelet Count 312 10^3/cmm (157-399); Red Blood Count 4.96 10^6/uL (3.85-5.65); Red Cell Distribution Width 13.2 % (12.1-15.1); White Blood Count 9.32 10^3/uL (3.29-11.43)
[2023-07-22 03:55] LABS: Blood Urea Nitrogen 32 mg/dL (8-23); Calcium 9.9 mg/dL (8.5-10.5); Carbon Dioxide 30 mmol/L (22-29); Chloride 98 mmol/L (98-107); Glomerular Filtration Rate 135.2 mL/min (90-130); Glucose 78 mg/dL (65-115); Osmolality Calculated 288 mOsm/kg (285-295); Sodium 136 mmol/L (136-145)
[2023-07-22] MEDS: enoxaparin 40 mg/0.4 mL Syringe SUBCUT (05:43)
--- NOTE | 2023-07-22 06:17 | PM.DCS ---
Discharge Providers Date of Admission: 07/20/23 08:54 Date of Discharge: July 22, 2023 Attending Provider at Admission: Megan Hu MD Attending Provider at Discharge: Kalee Thompson MD Primary Care Provider: Germán Bucio DO Diagnoses at Discharge Discharge Diagnosis (1) CHF (congestive heart failure): Status: Acute (2) Thoracic aortic aneurysm: Status: Acute (3) COPD exacerbation: Status: Acute (4) Dyspnea: Status: Acute (5) Hypoxia: Status: Acute (6) Mononeuritis multiplex: Status: Acute (7) Seizure: Status: Acute (8) Cataract: Status: Acute Reason for Visit Reason for Visit: SOB Hospital Course Hospital Course 63-year-old male who lives in a facility, does not have any family, presented to hospital for worsening of shortness of breath, patient was diagnosed with new onset CHF, echo showed mildly reduced EF, patient symptoms improved with use of IV diuretics, please note he is wheezing was severe on admission required IV steroids for about 72 hours, oxygen requirement was new, was requiring 4 to 5 L, patient is an active smoker, stress test was requested, PE was ruled out CT chest was done at the time of admission, patient will need optimization of his inhalers for emphysematous/COPD. We will add Spiriva and Advair, lisinopril for hypertension, Medrol pack and doxycycline for 3 days. Patient is stating that in case of any emergency he would like to stay full code, he does not have any medical DPOA, he stating that he has no friends or family in [place]. Physical Exam Narrative: Malnourished Requiring 4 L GCS 15 Awake and alert Wheezing or crackles improved Pleasant Left eye cataract S1, S2 Discharge Data Studies Completed and Pending Completed Studies During Hospitalization Category Date Time Status CTA chest [CT angio chest PE protcl [id number]] Stat Cat Scan 07/17/23 23:06 Completed XR chest 1V portable [id number] Stat Exams 07/17/23 22:19 Completed CV. echo complete* [id number] Routine Ultrasound 07/18/23 04:48 Completed Pending at discharge Category Date Time Status Sestamibi Stress Test Request Routine Exams 07/21/23 11:58 Ordered NM estela perf SPECT r/s* [id number] Routine Nuc Med 07/22/23 11:58 Ordered Radiology Impressions Chest X-Ray 07/17/23 22:19 IMPRESSION: 1. Emphysematous changes. 2. Mild pulmonary vascular congestion. Chest CTA 07/17/23 23:06 IMPRESSION: 1. Negative for pulmonary embolus. 2. Ascending thoracic aorta dilated to 3.5 cm. 3. Coronary artery atherosclerotic calcifications suspected. 4. Reflux of contrast into the intrahepatic veins suggestive of congestive heart failure. 5. Cardiomegaly. 6. Emphysematous changes. COMMENTS: In the absence of a history or active diagnosis of lung cancer, it is recommended that this patient with emphysema be evaluated for enrollment in a low dose CT lung cancer screening program. Laboratory Results WBC 9.32 10^3/uL (3.29-11.43) 07/22/23 02:47 RBC 4.96 10^6/uL (3.85-5.65) 07/22/23 02:47 Hgb 15.00 g/dL (11.27-16.99) 07/22/23 02:47 Hct 45.0 % (37-53) 07/22/23 02:47 MCV 90.7 fl (82-101) 07/22/23 02:47 MCH 30.2 pg (27-33) 07/22/23 02:47 MCHC 33.3 g/dL (30-55) 07/22/23 02:47 RDW 13.2 % (12.1-15.1) 07/22/23 02:47 Plt Count 312 10^3/cmm (157-399) 07/22/23 02:47 MPV 9.1 fL (7.4-10.4) 07/22/23 02:47 Neut % (Auto) 53.2 % 07/22/23 02:47 Lymph % (Auto) 31.3 % 07/22/23 02:47 Dukes % (Auto) 12.0 % 07/22/23 02:47 Eos % (Auto) 1.7 % 07/22/23 02:47 Baso % (Auto) 0.4 % 07/22/23 02:47 Neut # (Auto) 4.95 10^3/uL (1.8-7.7) 07/22/23 02:47 Lymph # (Auto) 2.9 10^3/uL (0.8-4.8) 07/22/23 02:47 Dukes # (Auto) 1.1 10^3/uL (0.2-0.9) H 07/22/23 02:47 Eos # (Auto) 0.2 10^3/uL (0.0-0.8) 07/22/23 02:47 Baso # (Auto) 0.0 10^3/uL (0.0-0.1) 07/22/23 02:47 Nucleated RBC % (auto) 0 % 07/22/23 02:47 Nucleated RBCs # 0.0 /100WBC 07/22/23 02:47 Sodium 136 mmol/L (136-145) 07/22/23 02:47 Potassium 4.0 mmol/L (3.5-5.1) 07/22/23 02:47 Chloride 98 mmol/L (98-107) 07/22/23 02:47 Carbon Dioxide 30 mmol/L (22-29) H 07/22/23 02:47 Anion Gap 12.0 (5-19) 07/22/23 02:47 BUN 32 mg/dL (8-23) H 07/22/23 02:47 Creatinine 0.6 mg/dL (0.7-1.2) L 07/22/23 02:47 GFR Calculation 135.2 mL/min (90-130) H 07/22/23 02:47 Glucose 78 mg/dL (65-115) 07/22/23 02:47 POC Glucose 181 mg/dL (70-110) H 07/19/23 19:25 Calculated Osmolality 288 mOsm/kg (285-295) 07/22/23 02:47 Calcium 9.9 mg/dL (8.5-10.5) 07/22/23 02:47 Magnesium 2.4 mg/dL (1.7-2.3) H 07/20/23 04:06 Total Bilirubin 0.2 mg/dL (0.15-1.2) 07/19/23 03:47 AST 12 U/L (0-40) 07/19/23 03:47 ALT 16 U/L (0-41) 07/19/23 03:47 Alkaline Phosphatase 166 U/L (40-130) H 07/19/23 03:47 Troponin T Baseline 37 ng/L (0-15) H 07/17/23 22:41 Troponin T 120 Minute 34.77 ng/L (0-15) H 07/18/23 00:30 Delta Troponin T -2.23 ABS# (0-10) L 07/18/23 00:30 Troponin T Hi Sens 6Hr 26.12 ng/L (0-15) H 07/18/23 04:28 Troponin T Hi Sens 6Hr Delta -10.88 ng/L (0-12) L 07/18/23 04:28 NT-Pro-B Natriuret Pep 4158 pg/mL (0-125) H 07/17/23 22:41 Total Protein 7.5 g/dL (6.6-8.7) 07/19/23 03:47 Albumin 4.1 g/dL (3.5-5.2) 07/19/23 03:47 Globulin 3.4 g/dL (1.3-4.6) 07/19/23 03:47 Procalcitonin 0.06 ng/mL (0-0.5) 07/18/23 04:28 Influenza Type A Ag negative (Negative) 07/17/23 22:58 Influenza Type B Ag negative (Negative) 07/17/23 22:58 SARS-CoV-2 Ag (Rapid) negative (Negative) 07/17/23 22:58 Vitals Last Vital Signs Temp 97.4 F L 07/22/23 03:44 Pulse 68 07/22/23 06:05 Resp 17 07/22/23 03:44 BP 109/70 07/22/23 03:44 Pulse Ox 93 07/22/23 03:44 O2 Del Method Nasal Cannula 07/22/23 03:44 O2 Flow Rate 3 07/22/23 02:16 FiO2 30 07/19/23 07:45 Discharge Plan Discharge Patient Disposition: Xfer SNF Condition: Stable Prescriptions: New Spiriva Respimat 1.25 mcg/actuation mist 2.5 mcg inhalation DAILY Qty: 4 0RF methylprednisolone [Medrol (Melo)] 4 mg tablets,dose pack See Rx Instructions .ROUTE .COMPLEX Qty: 21 0RF Rx Instructions: orally per package directions lisinopril 10 mg Tablet 10 mg PO DAILY Qty: 60 0RF furosemide 40 mg Tablet 40 mg PO DAILY@0800 Qty: 60 0RF fluticasone propion-salmeterol [Advair HFA] 45-21 mcg/actuation HFA aerosol inhaler 2 inh inhalation BID Qty: 12 2RF potassium chloride 10 mEq tablet extended release 10 meq PO DAILY Qty: 30 0RF Rx Instructions: only with lasix doxycycline hyclate 100 mg tablet 100 mg PO BID 3 Days Qty: 6 0RF Continued levetiracetam [Keppra] 500 mg tablet 500 mg PO BID acetaminophen [Tylenol] 325 mg tablet 650 mg PO QID PRN (Reason: Pain) phenytoin sodium extended 100 mg capsule 100 mg PO TID 90 Days Qty: 270 2RF Khushi-Tussin 100 mg/5 mL Liquid 200 mg PO Q4H PRN (Reason: Cough) gabapentin 300 mg capsule 300 mg PO TID naloxone 2 mg/2 mL Syringe Kit 2 mg IM Q3M PRN (Reason: Opioid Overdose) Rx Instructions: NTExceed 10 mg total dose/episode albuterol sulfate 5 mg/mL Solution For Nebulization 2.5 mg INHALATION Q6H PRN (Reason: Shortness Of Breath Or Wheezing) Qty: 600 0RF Discontinued amlodipine 5 mg tablet 5 mg PO DAILY Referrals: [facility] [Outside] Germán Bucio DO [Primary Care Provider] - Patient Instructions: Opioid Safety Coding Level of Care Code Acute Code for g Fwd Diagnoses CHF (congestive heart failure) I50.9 Thoracic aortic aneurysm I71.20 COPD exacerbation J44.1 Dyspnea R06.00 Hypoxia R09.02 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 Seizure R56.9 Cataract H26.9
[2023-07-22] MEDS: azithromycin 250 mg Tablet 500 MG PO (08:34)
[2023-07-22] MEDS: lisinopril 10 mg Tablet PO (08:34)
[2023-07-22] MEDS: levETIRAcetam 500 mg Tablet PO ×2 (08:34→17:18)
[2023-07-22] MEDS: cefTRIAXone 1,000 MG in sodium chloride 0.9% (plus) 50 ML 100 MG IV (08:34)
[2023-07-22] MEDS: phenytoin ER 100 mg Capsule PO ×3 (08:34→20:31)
[2023-07-22] MEDS: amlodipine 10 mg Tablet PO (08:34)
[2023-07-22] MEDS: FUROsemide 40 mg Tablet PO (08:34)
[2023-07-22] MEDS: pantoprazole DR 40 mg Tablet PO (08:34)
[2023-07-22] MEDS: predniSONE 20 mg Tablet 40 MG PO (08:34)
[2023-07-22] MEDS: gabapentin 300 mg Capsule PO ×3 (08:34→20:31)
[2023-07-22] MEDS: budesonide 0.5 mg/2 mL Neb INHALATION ×2 (09:39→20:48)
--- NOTE | 2023-07-22 11:58 | NMCV_ITS ---
NM estela perf SPECT r/s* [id number] Arnoldo Hoover Age: 63 Gender: M : 1960 Exam Date: 07/22/2023 11:58 Ordering Phys: Berna Rivas MD Technologist: JASMYN Brown Exam Location: [facility] Indications: CHEST PAIN STRESS TEST Please see separate stress test report in [facility] for full findings IMAGE PROTOCOL Rest/Stress 1 Lexiscan Day Radiopharmaceutical Dose (mCi) Administration Site Administered by Rest: Tc-99m 10.9 IV JASMYN Brown Sestamibi Stress:Tc-99m 32.3 IV JASMYN Shaver Sestamibi Rest: 22-Jul-2023 60 Discovery 630 Stress: 22-Jul-2023 30 Discovery 630 0.4mg Lexiscan. Supine position only as patient was unable to lay prone. SPECT RESULTS Technical Quality: Excellent Raw Data Analysis: Normal Image Corrections: No attenuation or motion correction applied Summed Stress Score: 18 Summed Rest Score: 22 Summed Difference Score: 1 PERFUSION FINDINGS Moderate to large area of moderate to severely decreased tracer uptake involving the inferior, inferolateral, mid inferoseptal and all the apical segments except the apical anterior segment with some reversibility in the apical lateral region FUNCTIONAL RESULTS (calculated via Gated SPECT) Stress Image LV EF (%): 25 Stress EDV (mL):266 TID: 1.16 Stress ESV (mL):200 FUNCTIONAL FINDINGS: Segmental wall motion analysis revealed diffuse hypokinesia of the left ventricular tao of the septum, apex and inferior wall region IMPRESSIONS 1. Myocardial perfusion imaging revealing a moderate to large area of moderate to severely decreased tracer uptake involving the inferior, inferolateral, inferoseptal and apical regions with a very small area of reversible defect in the apical lateral region suggesting extensive myocardial scarring in the distribution of the right coronary artery/circumflex artery with a very small area of [place] ninfarction ischemia mostly involving the circumflex territory. 2. LV ejection fraction of 25%. 3. Diffuse hypokinesia of the left ventricle 4. Markedly dilated LV cavity with an end-systolic volume of 200 mL No similar previous studies are available for comparison Dr Kelvin Diaz MD FAC (Electronically Signed) Final Date: 22 July 2023 14:56 S
[2023-07-22] MEDS: regadenoson 0.4 Mg/5 ml Syringe IVP (12:01)
--- NOTE | 2023-07-22 12:20 | PM.PN ---
Subjective Subjective: Patient awaiting stress test. States his shortness of breath is improved compared to admission Does not wear oxygen at home. Will be getting home O2 eval today. States he would like to go home as soon as possible. He understands however he has not tested it today. Denies chest pain, overall feels okay. Vitals/I&O/Wt Last Vital Signs Temp 98.0 F 07/22/23 07:50 Pulse 77 07/22/23 09:39 Resp 18 07/22/23 09:39 BP 116/73 07/22/23 07:50 Pulse Ox 87 L 07/22/23 10:20 O2 Del Method Nasal Cannula 07/22/23 09:39 O2 Flow Rate 3 07/22/23 10:20 FiO2 30 07/19/23 07:45 07/21/23 07/22/23 07/22/23 22:59 06:59 14:59 Intake Total 480 / 1010.96 50 / 50 Balance 480 / 1010.96 50 / 50 Physical Exam Narrative: No acute distress Wearing 3 L nasal cannula Lungs clear to auscultation bilaterally with mild rhonchi left lower base Abdomen soft nontender No edema bilateral lower extremities Data 07/22/23 02:47 07/22/23 02:47 A&P Assessment and plan (1) CHF (congestive heart failure): (2) COPD exacerbation: (3) Dyspnea: (4) Hypoxia: (5) Seizure: (6) Cataract: (7) Low left ventricular ejection fraction: (8) Oxygen dependent: Plan #Acute hypoxia #Active smoker #New onset CHF #COPD exacerbation #History of seizures #Reduced EF ? Stress test today ? Echo July 18, 2023 shows reduced EF however poor study ? Further management pending stress test results ? We will need steroids and inhalers at time of discharge ? Home O2 eval today. Patient qualified for 2 L nasal cannula ? Continue prednisone 40 daily, ceftriaxone, azithromycin ? Continue phenytoin 100 3 times daily ? Continue Keppra 500 twice daily ? Continue lisinopril, amlodipine ? Patient n.p.o. for stress at this time. Diet may be initiated after test is complete ? Potential discharge in a.m. pending stress test results SCDS Lovenox 40 daily Attestations Medical Necessity Statement*: DC in AM after stress test results. Diagnoses CHF (congestive heart failure) I50.9 COPD exacerbation J44.1 Dyspnea R06.00 Hypoxia R09.02 Seizure R56.9 Cataract H26.9 Low left ventricular ejection fraction R94.30 Oxygen dependent Z99.81
--- NOTE | 2023-07-22 13:28 | PC.SOCIAL ---
IMM Update pg 2 of IMM updated and reviewed w/ patient. Copy provided and Copy dated, initialed and placed in chart.
--- NOTE | 2023-07-22 18:45 | PM.CONSULT ---
Providers/Reason For Consult Consulting Physician/Specialty*: Fredy Clemens MD/ Cardiology Reason for Consult*: Congestive heart failure Requesting Physician: Dr Thompson Attending Physician: Kalee Thompson MD Primary Care Provider: Germán Bucio DO History of Present Illness History of Present Illness Arnoldo Hoover is a 63 year old male with past medical history of COPD and epilepsy presented to the hospital with shortness of breath and chest discomfort. Troponins did not trend up significantly. EKG showed sinus rhythm with nonspecific ST-T wave changes. Echo was of limited quality however moderately reduced LV systolic function was seen. Stress test was performed that showed prior infarct in left circumflex artery/RCA territory with small area [place]-infarct ischemia. LVEF was severely reduced on stress test with EF of 26%. Today he denies chest pain. He is a poor historian. He is a little upset about having to stay in the hospital. Review of Systems General: Reports: 10 or more systems reviewed and unremarkable except in HPI and below Const: Denies: fever(s), chills or body aches Eyes: Denies: change in vision, blurry vision or photophobia ENMT: Reports: hoarseness; Denies: throat pain, enlarged tonsils, odynophagia or nasal congestion Card: Reports: dyspnea on exertion; Denies: chest pain, palpitations, irregular heart rhythm, edema, swelling of feet/ankles, lightheadedness, pre-syncope or orthopnea Resp: Denies: dyspnea, productive cough, non-productive cough, wheezing, stridor, pain on inspiration, change in phlegm color, hemoptysis or chest congestion GI: Denies: abdominal pain, nausea, vomiting, hematemesis, coffee ground emesis, dysphagia, heartburn, diarrhea, constipation, GI cramping, change in stool character, hematochezia or melena : Denies: flank pain, dysuria, urinary frequency, urinary urgency, urinary hesitancy or hematuria Musc: Denies: neck pain, back pain, extremity pain, joint swelling, joint warmth or deformity Neuro: Denies: frequent falls, dizziness or vertigo Psych: Denies: anxiety, depression, suicidal ideation or homicidal ideation Medications/Allergies Home Medications Medication Instructions Recorded Confirmed Last Taken Type phenytoin sodium extended 100 mg 100 mg PO TID seizure disorder 90 09/07/20 07/18/23 Unknown Rx capsule days #270 caps acetaminophen 325 mg tablet 650 mg PO QID PRN Pain 01/02/21 07/18/23 Unknown History (Tylenol) levetiracetam 500 mg tablet 500 mg PO BID 01/02/21 07/18/23 Unknown History (Keppra) albuterol sulfate 5 mg/mL(0.5 %) 2.5 mg inhalation Q6H PRN 07/18/23 07/18/23 Unknown History solution for nebulization Shortness Of Breath Or Wheezing amlodipine 5 mg tablet 5 mg PO DAILY 07/18/23 07/18/23 Unknown History gabapentin 300 mg capsule 300 mg PO TID 07/18/23 07/18/23 Unknown History guaifenesin 100 mg/5 mL oral 200 mg PO Q4H PRN Cough 07/18/23 07/18/23 Unknown History liquid (Khushi-Tussin) naloxone 2 mg/2 mL syringe kit 2 mg IM Q3M PRN Opioid Overdose 07/18/23 07/18/23 Unknown History Allergies Allergy/AdvReac Type Severity Reaction Status Date / Time No Known Allergies Allergy Verified 07/18/23 07:59 Current Medications Generic Name Dose Route Start Last Admin Trade Name Freq PRN Reason Stop Dose Admin Albuterol/Ipratropium 3 ml 07/18/23 08:00 07/22/23 14:39 Ipratropium-Albuterol 3 Ml Neb INHALATION 3 ml Q6H.RESP MARY Administration Amlodipine Besylate 10 mg 07/19/23 10:10 07/22/23 08:34 Amlodipine 10 Mg Tablet PO 10 mg DAILY MARY Administration Azithromycin 500 mg 07/19/23 09:00 07/22/23 08:34 Azithromycin 250 Mg Tablet PO 500 mg DAILY MARY Administration Protocol Budesonide 0.5 mg 07/18/23 09:21 07/22/23 09:39 Budesonide 0.5 Mg/2 Ml Neb INHALATION 0.5 mg BID.RESPIRATORY MARY Administration Enoxaparin Sodium 40 mg 07/18/23 05:00 07/22/23 05:43 Enoxaparin 40 Mg/0.4 Ml Syringe SUBCUT 40 mg Q24H MARY Administration Furosemide 40 mg 07/22/23 08:00 07/22/23 08:34 Furosemide 40 Mg Tablet PO 40 mg DAILY@0800 MARY Administration Gabapentin 300 mg 07/18/23 21:00 07/22/23 15:38 Gabapentin 300 Mg Capsule PO 300 mg TID MARY Administration Ceftriaxone Sodium 1,000 mg/ 50 mls @ 100 mls/hr 07/18/23 10:55 07/22/23 09:20 Sodium Chloride IV Infused DAILY MARY Infusion Protocol Levetiracetam 500 mg 07/18/23 22:06 07/22/23 17:18 Levetiracetam 500 Mg Tablet PO 500 mg BID MARY Administration Lisinopril 10 mg 07/19/23 10:10 07/22/23 08:34 Lisinopril 10 Mg Tablet PO 10 mg DAILY MARY Administration Pantoprazole Sodium 40 mg 07/18/23 09:00 07/22/23 08:[address] 40 Mg Tablet PO 40 mg DAILY MARY Administration Phenytoin 100 mg 07/18/23 22:09 07/22/23 15:38 Phenytoin Er 100 Mg Capsule PO 100 mg TID MARY Administration Prednisone 40 mg 07/22/23 09:00 07/22/23 08:34 Prednisone 20 Mg Tablet PO 40 mg DAILY MARY Administration PFSH Acute PFSH: Medical History Seizure Social History Smoking and tobacco/nicotine status: current every day tobacco/nicotine user Alcohol intake: former Substance/Drug Use: former Vitals/I&O/Wt Last Vital Signs Temp 98.0 F 07/22/23 16:00 Pulse 83 07/22/23 16:00 Resp 15 07/22/23 16:00 BP 106/67 07/22/23 16:00 Pulse Ox 94 07/22/23 16:00 O2 Del Method Nasal Cannula 07/22/23 16:00 O2 Flow Rate 3 07/22/23 14:40 FiO2 30 07/19/23 07:45 07/22/23 07/22/23 07/22/23 06:59 14:59 22:59 Intake Total 50 / 50 240 / 290 Balance 50 / 50 240 / 290 Physical Exam Narrative: GENERAL: Patient is alert, awake and oriented x3. [] NECK: No jugular vein distension. [] HEENT: No cyanosis. No icterus. No pallor. [] HEART: Regular S1 and S2. No murmur, rub or gallop. [] LUNGS: Diminished air entry CENTRAL NERVOUS SYSTEM: Grossly nonfocal. [] EXTREMITIES: Lower extremities with no edema Data 07/23/23 04:30 07/23/23 04:30 A&P Assessment and plan (1) CHF (congestive heart failure): (2) COPD exacerbation: (3) Dyspnea: (4) Seizure: Plan Patient has cardiomyopathy likely ischemic given the stress test findings. I discussed with patient different options including invasive angiogram to assess and treat CAD if significant. He is upset that he has to stay in the hospital. However he says he will think over it. For now he will be n.p.o. for possible coronary angiogram tomorrow. If he decides for medical therapy we will continue with that. Low-dose beta-milan therapy. Continue aspirin and Plavix Thank you for involving us with care of this patient. We will continue to follow. Please call with questions. Consult Attestations Medical Necessity Statement: Care expected to cross 2 midnights. Coding Level of Care Code Acute Code for [facility] Diagnoses CHF (congestive heart failure) I50.9 COPD exacerbation J44.1 Dyspnea R06.00 Seizure R56.9
[2023-07-22 19:58] LABS: SARS Covid-2 Antigen negative (Negative)
[2023-07-23 03:32] VITALS: BP 90/60; PULSE 80; RESP 16; TEMP 36.6; O2SAT 94
[2023-07-23] MEDS: enoxaparin 40 mg/0.4 mL Syringe SUBCUT (05:00)
[2023-07-23 05:01] LABS: Basophils # 0.1 10^3/uL (0.0-0.1); Basophils % 0.5 %; Eosinophils # 0.4 10^3/uL (0.0-0.8); Eosinophils % 3.2 %; Hematocrit 45.6 % (37-53); Lymphocytes # 3.2 10^3/uL (0.8-4.8); Lymphocytes % 28.5 %; Mean Corpuscular HGB Conc 32.7 g/dL (30-55); Mean Corpuscular Hemoglobin 29.5 pg (27-33); Mean Corpuscular Volume 90.3 fl (82-101); Monocytes # 1.4 10^3/uL (0.2-0.9); Monocytes % 12.7 %; Neutrophils # 5.83 10^3/uL (1.8-7.7); Neutrophils % 52.7 %; Nucleated Red Blood Cells % 0 %; Platelet Count 339 10^3/cmm (157-399); Red Blood Count 5.05 10^6/uL (3.85-5.65); Red Cell Distribution Width 13.2 % (12.1-15.1); White Blood Count 11.06 10^3/uL (3.29-11.43)
[2023-07-23 05:29] LABS: Anion Gap 15.1 (5-19); Blood Urea Nitrogen 41 mg/dL (8-23); Carbon Dioxide 29 mmol/L (22-29); Chloride 95 mmol/L (98-107); Glucose 98 mg/dL (65-115); Magnesium 2.4 mg/dL (1.7-2.3); Osmolality Calculated 290 mOsm/kg (285-295); Potassium 4.1 mmol/L (3.5-5.1); Sodium 135 mmol/L (136-145)
[2023-07-23 07:28] VITALS: BP 99/63; PULSE 76; RESP 16; TEMP 36.6; O2SAT 96
[2023-07-23 08:00] VITALS: PULSE 76; RESP 16; O2SAT 93
[2023-07-23] MEDS: budesonide 0.5 mg/2 mL Neb INHALATION (08:25)
[2023-07-23] MEDS: ipratropium-albuterol 3 mL Neb INHALATION (08:25)
[2023-07-23] MEDS: cefTRIAXone 1,000 MG in sodium chloride 0.9% (plus) 50 ML 100 MG IV (10:16)
[2023-07-23] MEDS: phenytoin ER 100 mg Capsule PO (10:16)
[2023-07-23] MEDS: azithromycin 250 mg Tablet 500 MG PO (10:17)
[2023-07-23] MEDS: FUROsemide 40 mg Tablet PO (10:17)
[2023-07-23] MEDS: levETIRAcetam 500 mg Tablet PO (10:17)
[2023-07-23] MEDS: gabapentin 300 mg Capsule PO (10:17)
[2023-07-23] MEDS: predniSONE 20 mg Tablet 40 MG PO (10:17)
[2023-07-23] MEDS: lisinopril 10 mg Tablet PO (10:17)
[2023-07-23] MEDS: pantoprazole DR 40 mg Tablet PO (10:17)
[2023-07-23] MEDS: amlodipine 10 mg Tablet PO (10:18)
[2023-07-23 11:08] VITALS: BP 93/64; PULSE 81; RESP 14; TEMP 36.6; O2SAT 98
--- NOTE | 2023-07-23 11:29 | PM.DCS ---
Discharge Providers Date of Admission: 07/20/23 08:54 Date of Discharge: July 23, 2023 Attending Provider at Admission: Megan Hu MD Attending Provider at Discharge: Kalee Thompson MD Primary Care Provider: Germán Bucio DO Diagnoses at Discharge Discharge Diagnosis (1) CHF (congestive heart failure): Status: Acute (2) COPD exacerbation: Status: Acute (3) Dyspnea: Status: Acute (4) Hypoxia: Status: Acute (5) Seizure: Status: Acute (6) Cataract: Status: Acute (7) Low left ventricular ejection fraction: Status: Acute (8) Oxygen dependent: Status: Acute Reason for Visit Reason for Visit: SOB Hospital Course Hospital Course 63-year-old male who lives in a facility, does not have any family, presented to hospital for worsening of shortness of breath, patient was diagnosed with new onset CHF, echo showed mildly reduced EF, patient symptoms improved with use of IV diuretics, please note he is wheezing was severe on admission required IV steroids for about 72 hours, oxygen requirement was new, was requiring 4 to 5 L, patient is an active smoker, stress test was requested, PE was ruled out CT chest was done at the time of admission, patient will need optimization of his inhalers for emphysematous/COPD. We will add Spiriva and Advair,,doxycyline x3 days. Prednisone 3 more days at discharge. Patient had a stress test this admission which showed myocardial perfusion imaging moderate to large area of moderately severely decreased tracer uptake involving inferior inferolateral inferoseptal and apical regions with a very small area of reversible defect in the apical lateral region suggesting extensive myocardial scarring in the distribution of the right coronary artery/circumflex artery with a very small area of [place]-infarction ischemia mostly involving the circumflex territory. LVEF 25%. Diffuse hypokinesia of left ventricle. Markedly dilated left ventricular cavity with end-systolic volume of 200. CTA this admission did show ascending aortic thoracic aorta dilated to 3.5 cm. Congestive heart failure evidence. Cardiology was consulted and patient was offered an angiogram. At first he agreed but later he stated that he thought about it quite a bit and he would like to opt for medical management and would like to avoid invasive procedures at this time. Angiogram was deferred. Patient will be sent home on aspirin Plavix, Lasix, metoprolol and lisinopril. CBC and BMP to be repeated in a week to monitor labs. He denies a history of GI bleed or other bleeding issues when asked. Patient able to make his own medical decisions and states that he would like to go back to [place]. He will be set up with oxygen at discharge.. Patient is stating that in case of any emergency he would like to stay full code, he does not have any medical DPOA, he stating that he has no friends or family in [place]. He will be discharged to his [facility] facility in stable condition. Physical Exam Narrative: No acute distress Wearing 3 L nasal cannula Lungs clear to auscultation bilaterally with mild rhonchi left lower base Abdomen soft nontender No edema bilateral lower extremities Discharge Data Studies Completed and Pending Completed Studies During Hospitalization Category Date Time Status CTA chest [CT angio chest PE protcl [id number]] Stat Cat Scan 07/17/23 23:06 Completed Sestamibi Stress Test Request Routine Exams 07/21/23 11:58 Draft XR chest 1V portable [id number] Stat Exams 07/17/23 22:19 Completed NM estela perf SPECT r/s* [id number] Routine Nuc Med 07/22/23 11:58 Completed CV. echo complete* [id number] Routine Ultrasound 07/18/23 04:48 Completed Radiology Impressions Chest X-Ray 07/17/23 22:19 IMPRESSION: 1. Emphysematous changes. 2. Mild pulmonary vascular congestion. Chest CTA 07/17/23 23:06 IMPRESSION: 1. Negative for pulmonary embolus. 2. Ascending thoracic aorta dilated to 3.5 cm. 3. Coronary artery atherosclerotic calcifications suspected. 4. Reflux of contrast into the intrahepatic veins suggestive of congestive heart failure. 5. Cardiomegaly. 6. Emphysematous changes. COMMENTS: In the absence of a history or active diagnosis of lung cancer, it is recommended that this patient with emphysema be evaluated for enrollment in a low dose CT lung cancer screening program. Laboratory Results WBC 11.06 10^3/uL (3.29-11.43) 07/23/23 04:30 RBC 5.05 10^6/uL (3.85-5.65) 07/23/23 04:30 Hgb 14.90 g/dL (11.27-16.99) 07/23/23 04:30 Hct 45.6 % (37-53) 07/23/23 04:30 MCV 90.3 fl (82-101) 07/23/23 04:30 MCH 29.5 pg (27-33) 07/23/23 04:30 MCHC 32.7 g/dL (30-55) 07/23/23 04:30 RDW 13.2 % (12.1-15.1) 07/23/23 04:30 Plt Count 339 10^3/cmm (157-399) 07/23/23 04:30 MPV 9.0 fL (7.4-10.4) 07/23/23 04:30 Neut % (Auto) 52.7 % 07/23/23 04:30 Lymph % (Auto) 28.5 % 07/23/23 04:30 [place] % (Auto) 12.7 % 07/23/23 04:30 Eos % (Auto) 3.2 % 07/23/23 04:30 Baso % (Auto) 0.5 % 07/23/23 04:30 Neut # (Auto) 5.83 10^3/uL (1.8-7.7) 07/23/23 04:30 Lymph # (Auto) 3.2 10^3/uL (0.8-4.8) 07/23/23 04:30 [place] # (Auto) 1.4 10^3/uL (0.2-0.9) H 07/23/23 04:30 Eos # (Auto) 0.4 10^3/uL (0.0-0.8) 07/23/23 04:30 Baso # (Auto) 0.1 10^3/uL (0.0-0.1) 07/23/23 04:30 Nucleated RBC % (auto) 0 % 07/23/23 04:30 Nucleated RBCs # 0.0 /100WBC 07/23/23 04:30 Sodium 135 mmol/L (136-145) L 07/23/23 04:30 Potassium 4.1 mmol/L (3.5-5.1) 07/23/23 04:30 Chloride 95 mmol/L (98-107) L 07/23/23 04:30 Carbon Dioxide 29 mmol/L (22-29) 07/23/23 04:30 Anion Gap 15.1 (5-19) 07/23/23 04:30 BUN 41 mg/dL (8-23) H 07/23/23 04:30 Creatinine 1.0 mg/dL (0.7-1.2) 07/23/23 04:30 GFR Calculation 75.0 mL/min (90-130) L 07/23/23 04:30 Glucose 98 mg/dL (65-115) 07/23/23 04:30 POC Glucose 181 mg/dL (70-110) H 07/19/23 19:25 Calculated Osmolality 290 mOsm/kg (285-295) 07/23/23 04:30 Calcium 10.0 mg/dL (8.5-10.5) 07/23/23 04:30 Magnesium 2.4 mg/dL (1.7-2.3) H 07/23/23 04:30 Total Bilirubin 0.2 mg/dL (0.15-1.2) 07/19/23 03:47 AST 12 U/L (0-40) 07/19/23 03:47 ALT 16 U/L (0-41) 07/19/23 03:47 Alkaline Phosphatase 166 U/L (40-130) H 07/19/23 03:47 Troponin T Baseline 37 ng/L (0-15) H 07/17/23 22:41 Troponin T 120 Minute 34.77 ng/L (0-15) H 07/18/23 00:30 Delta Troponin T -2.23 ABS# (0-10) L 07/18/23 00:30 Troponin T Hi Sens 6Hr 26.12 ng/L (0-15) H 07/18/23 04:28 Troponin T Hi Sens 6Hr Delta -10.88 ng/L (0-12) L 07/18/23 04:28 NT-Pro-B Natriuret Pep 4158 pg/mL (0-125) H 07/17/23 22:41 Total Protein 7.5 g/dL (6.6-8.7) 07/19/23 03:47 Albumin 4.1 g/dL (3.5-5.2) 07/19/23 03:47 Globulin 3.4 g/dL (1.3-4.6) 07/19/23 03:47 Procalcitonin 0.06 ng/mL (0-0.5) 07/18/23 04:28 Influenza Type A Ag negative (Negative) 07/17/23 22:58 Influenza Type B Ag negative (Negative) 07/17/23 22:58 SARS-CoV-2 Ag (Rapid) negative (Negative) 07/22/23 17:34 Vitals Last Vital Signs Temp 97.9 F 07/23/23 11:08 Pulse 81 07/23/23 11:08 Resp 14 07/23/23 11:08 BP 93/64 07/23/23 11:08 Pulse Ox 98 07/23/23 11:08 O2 Del Method Nasal Cannula 07/23/23 11:08 O2 Flow Rate 2 07/23/23 08:00 FiO2 30 07/19/23 07:45 Discharge Plan Discharge Patient Disposition: Xfer [facility] Condition: Stable Prescriptions: New furosemide 40 mg Tablet 40 mg PO DAILY@0800 Qty: 60 0RF Advair HFA 45-21 mcg/actuation HFA aerosol inhaler 2 inh inhalation BID Qty: 12 2RF Spiriva Respimat 1.25 mcg/actuation mist 2.5 mcg inhalation DAILY Qty: 4 0RF potassium chloride 10 mEq tablet extended release 10 meq PO DAILY Qty: 30 0RF Rx Instructions: only with lasix doxycycline hyclate 100 mg tablet 100 mg PO BID 3 Days Qty: 6 0RF aspirin 81 mg tablet,delayed release (DR/EC) 81 mg PO DAILY Qty: 30 0RF Plavix 75 mg tablet 75 mg PO DAILY Qty: 30 0RF metoprolol tartrate 25 mg tablet 12.5 mg PO BID Qty: 30 0RF lisinopril 2.5 mg tablet 2.5 mg PO DAILY Qty: 30 0RF prednisone 20 mg tablet 40 mg PO DAILY 3 Days Qty: 6 0RF Continued levetiracetam [Keppra] 500 mg tablet 500 mg PO BID acetaminophen [Tylenol] 325 mg tablet 650 mg PO QID PRN (Reason: Pain) phenytoin sodium extended 100 mg capsule 100 mg PO TID 90 Days Qty: 270 2RF Khushi-Tussin 100 mg/5 mL Liquid 200 mg PO Q4H PRN (Reason: Cough) gabapentin 300 mg capsule 300 mg PO TID naloxone 2 mg/2 mL Syringe Kit 2 mg IM Q3M PRN (Reason: Opioid Overdose) Rx Instructions: NTExceed 10 mg total dose/episode albuterol sulfate 5 mg/mL Solution For Nebulization 2.5 mg INHALATION Q6H PRN (Reason: Shortness Of Breath Or Wheezing) Qty: 600 0RF Discontinued amlodipine 5 mg tablet 5 mg PO DAILY Discharge Orders: Discharge Order (Routine); Ordered 07/23/23 Ordered By: Kalee Thompson Other Ambulatory Orders: Basic Metabolic Panel (Routine) Timeframe: 1 Week Facility: [facility] - Location: Lab - Main Lab Ordered By: Kalee Thompson Complete Blood Count w/Auto (Routine) Timeframe: 1 Week Location: Determined by Patient Ordered By: Kalee Thompson Referrals: [facility] [Outside] Fredy Clemens M.D [Physician] - 1 month Kathleen Aguilera FNP [Nurse Practitioner] - 7-10 days Germán Bucio DO [Primary Care Provider] - 4-7 days Discharge Diet: Cardiac Discharge Activity: Increase activity as tolerated and Oxygen as instructed Patient Instructions: Opioid Safety Activity Restrictions/Additional Instructions: Setup home oxygen at discharge Discharge Attestations Time Spent in Discharge Care*: greater than 30 min Quality Metrics Clinical Quality Measures [ No reported AMI, CVA or VTE this stay] Coding Level of Care Code 50491 Total time (in minutes) for Discharge: 35 Diagnoses CHF (congestive heart failure) I50.9 COPD exacerbation J44.1 Dyspnea R06.00 Hypoxia R09.02 Seizure R56.9 Cataract H26.9 Low left ventricular ejection fraction R94.30 Oxygen dependent Z99.81
--- NOTE | 2023-07-23 11:45 | PM.PN ---
Subjective Subjective: Patient is chest pain-free. He does not want to have invasive procedures done. Wants medical therapy. Vitals/I&O/Wt Last Vital Signs Temp 97.9 F 07/23/23 11:08 Pulse 81 07/23/23 11:08 Resp 14 07/23/23 11:08 BP 93/64 07/23/23 11:08 Pulse Ox 98 07/23/23 11:08 O2 Del Method Nasal Cannula 07/23/23 11:08 O2 Flow Rate 2 07/23/23 08:00 FiO2 30 07/19/23 07:45 07/22/23 07/23/23 07/23/23 22:59 06:59 14:59 Intake Total 240 / 290 Balance 240 / 290 Physical Exam Narrative: GENERAL: Patient is alert, awake and oriented x3. [] NECK: No jugular vein distension. [] HEENT: No cyanosis. No icterus. No pallor. [] HEART: Regular S1 and S2. No murmur, rub or gallop. [] LUNGS: Diminished air entry CENTRAL NERVOUS SYSTEM: Grossly nonfocal. [] EXTREMITIES: Lower extremities with no edema Data 07/23/23 04:30 07/23/23 04:30 A&P Assessment and plan (1) CHF (congestive heart failure): (2) COPD exacerbation: (3) Dyspnea: (4) Seizure: Plan Patient is overall stable. He wants medical therapy only. We will continue with aspirin and Plavix. Continue beta-milan. Thank you for involving us with care of this patient. Please call with questions. Attestations Medical Necessity Statement*: Care expected to cross 2 midnights. Coding Level of Care Code Acute Code for [facility] Fwd Diagnoses CHF (congestive heart failure) I50.9 COPD exacerbation J44.1 Dyspnea R06.00 Seizure R56.9
[2023-07-23 13:22] VITALS: BP 93/64; PULSE 81; RESP 14; TEMP 36.6; O2SAT 98
== END 2023-07-23 13:23 | disposition skilled nursing facility (03) | DRG 291 ==
LOC: ER 07-18 01:27 → MEDSURG 07-18 01:36 → ICU 07-18 10:58 → MEDSURG 07-21 14:21
PROVIDERS: Internal Medicine; Admitting Provider Student in an Organized Health Care Education/Training Program; Emergency Provider Emergency Medicine; PCP Internal Medicine; Visit Provider Internal Medicine
DX: I11.0 Hypertensive heart disease with heart failure (principal); I50.21 Acute systolic (congestive) heart failure; J44.1 Chronic obstructive pulmonary disease with (acute) exacerbation; G40.909 Epilepsy, unspecified, not intractable, without status epilepticus; R09.02 Hypoxemia; F17.210 Nicotine dependence, cigarettes, uncomplicated; I77.810 Thoracic aortic ectasia; Z11.52 Encounter for screening for COVID-19; G58.7 Mononeuritis multiplex
CPT/HCPCS: 36415; 36416; 71045; 71275; 78452; 80048; 80053; 82962; 83735; 83880; 84145; 84484; 85025; 87426; 87804; 93005; 93306; 94002; 94640; 94760; 96372; 96374; 96375; 96376; 99285; A9500; G0378; J0696; J1100; J1650; J1940; J2785; J2930; J3475; J7512; J7626; Q0144; Q9967

== ENCOUNTER → 2023-10-30 09:29 | Outpatient (BNVA) | payer MEDICARE, MEDICAID, SELFPAY | PROVIDERS: PCP Family Medicine; Visit Provider Nurse Practitioner | DX: G58.7 Mononeuritis multiplex; M90.8 Osteopathy in diseases classified elsewhere; M19.042 Primary osteoarthritis, left hand | CPT/HCPCS: 73130; 99204 ==

== ENCOUNTER → 2024-01-21 15:27 | Outpatient (BNVA) | payer MEDICARE, MEDICAID, SELFPAY | PROVIDERS: PCP Family Medicine; Visit Provider Specialist | DX: G58.7 Mononeuritis multiplex (principal); R56.9 Unspecified convulsions | CPT/HCPCS: 95860; 95885; 95908; 99202 ==

== ENCOUNTER → 2024-04-01 15:34 | Outpatient (BNVA) | payer MEDICARE, MEDICAID, SELFPAY | PROVIDERS: PCP Family Medicine; Visit Provider Nurse Practitioner | DX: M19.042 Primary osteoarthritis, left hand (principal); G58.7 Mononeuritis multiplex | CPT/HCPCS: 99213 ==